=== PATIENT | male | born 1990 | race Hispanic/Latino ===

== ENCOUNTER 2024-08-25 23:38 | Emergency (ER) | payer SELFPAY ==
[~2024-08-25 23:38] MED LIST: Iopamidol 370 76% 100 ML VIAL ONE
[2024-08-25] MEDS ORDERED: Lorazepam 2 MG/ML VIAL ONE (23:48)
[2024-08-25] MEDS ORDERED: Sodium Chloride 0.9% 1,000 ML ONE (23:48)
[2024-08-25 23:55] LABS: #Basophils 0.2 thou/uL (0.0-0.2); #Eosinophils 0.1 thou/uL (0.0-0.7); #Lymphocytes 4.9 thou/uL (1.20-3.40); #Neutrophils 7.7 thou/uL (1.40-6.50); %Basophils 1.1 % (0.0-1.0); %Eosinophils 0.5 % (0.0-10.0); %Lymphocytes 35.5 % (21.0-51.0); %Monocytes 7.2 % (0.0-10.0); %Neutrophils 55.6 % (42.0-75.0); Hematocrit 44.4 % (42.0-52.0); Hemoglobin 14.7 g/dL (14.0-18.0); Mean Corpuscular HGB CONC 33.1 g/dL (32.0-36.0); Mean Corpuscular Hemoglobin 29.7 pg (27.0-31.0); Platelet Count 287 10x3/uL (130-400); RBC Distribution Width 11.8 % (11.5-14.5); Red Blood Cell (RBC) Count 4.93 mill/uL (4.70-6.10); White Blood Cell (WBC) Count 13.9 10x3/uL (4.8-10.8)
[2024-08-26 00:06] LABS: INR-International Normal Ratio 0.9; Prothrombin Time 12.6 sec (12.0-14.7)
[2024-08-26 00:07] LABS: PTT 25.2 sec (22.9-36.1)
[2024-08-26 00:29] LABS: ALT (SGPT) 18 U/L (8-55); AST (SGOT) 20 U/L (5-34); Albumin 4.8 g/dL (3.5-5.0); Alkaline Phosphatase 90 U/L (40-110); BUN (Urea Nitrogen) 14 mg/dL (8.9-20.6); Bilirubin, Total 0.5 mg/dL (0.2-1.2); Calc. Creatinine Clearance 0 mL/min (70-130); Calcium 9.7 mg/dL (7.8-10.44); Carbon Dioxide 22 mmol/L (22-29); Estimated GFR 104; Globulin 3.2 g/dL (2.4-3.5); Glucose 113 mg/dL (70-105)
[2024-08-26 00:30] LABS: Acetaminophen Less than 10 mcg/mL (Less than 10); Alcohol 183.3 mg/dL (Less than 10); Lipase 48 U/L (8-78); Salicylate Less than 8.0 mg/dL (Less than 8.0)
[2024-08-26] MEDS ORDERED: Sodium Chloride 0.9% 100 ML ONE ×2 (00:30→04:12)
[2024-08-26] MEDS ORDERED: Cefepime 1 GM VIAL ONE (00:30)
[2024-08-26] MEDS ORDERED: Aspirin Chewable 81 MG TAB ONE (00:30)
[2024-08-26 00:32] LABS: Troponin I Less than 0.010 ng/mL (< 0.028)
[2024-08-26] MEDS ORDERED: Sodium Chloride 0.9% 1,000 ML ONE (01:01)
[2024-08-26 02:41] LABS: Anion Gap 21 mmol/L (10-20); Chloride 108 mmol/L (98-107); Potassium 3.3 mmol/L (3.5-5.1); Sodium 144 mmol/L (136-145)
[2024-08-26 04:02] LABS: Troponin I Less than 0.010 ng/mL (< 0.028)
[2024-08-26] MEDS ORDERED: Doxycycline 100 MG VIAL ONE (04:10)
== END 2024-08-26 05:00 | disposition short-term general hospital (02) ==
LOC: MADERS 23:38
DX: J18.9 Pneumonia, unspecified organism (principal); R07.9 Chest pain, unspecified; F17.210 Nicotine dependence, cigarettes, uncomplicated
CPT/HCPCS: 71045; 71275; 80053; 80307; 83605; 83690; 83880; 84443; 84484; 85025; 85610; 85730; 87040; 93005; 94760; 96365; 96367; 96375; J0692; J2060; J7030; Q9967